=== PATIENT | female | born 1935 | race Caucasian/White ===

== ENCOUNTER 2018-03-20 09:18 | Inpatient (IN) | END 2018-03-22 17:09 | DRG 871 ==

== ENCOUNTER 2018-12-19 08:25 | Emergency (ER) | payer MEDICARE ==
[~2018-12-19] VITALS: Ht 160 cm; Wt 74.0 kg
[~2018-12-19 08:25] MED LIST: ALBU2.5V3 NEB; BUDE0.25 HHN; CLOP75TA27 PO; DOCU-216 PO; DOXY100T20 PO; FAMO40TA5 PO; FER325 PO; GUAI120S25 PO; HYDR25TA6 PO; PSYL3.4P11 PO; TORS5TAB10 PO
[2018-12-19 08:32] VITALS: Ht 160 cm; Wt 74.0 kg
[2018-12-19] MEDS ORDERED: NAPR-985 PO (10:27)
[2018-12-19 11:41] VITALS: BP 177/79; PULSE 67; RESP 18
--- NOTE | 2018-12-19 14:59 | ERD ---
ER Documentation Chief Complaint Chief Complaint rt ankle pain s/p slipped from bed HPI 83-year-old female presenting with pain to her right ankle and right foot. She has dementia however she believes she may have fallen out of bed and sustained injury. She is not certain of her injury as she lives in assisted living. It was an unwitnessed episode. She was brought here by the ambulance because she was unable to walk after the injury occurred. This happened this morning ultimately 3 hours prior to my evaluation. She has not taken medications for her symptoms. Denies other medical problems. NKDA. Surgical history denies. Social history denies ROS All systems reviewed and are negative except as per history of present illness. Medications Home Meds Active Scripts Naproxen* (Naprosyn*) 500 Mg Tablet, 500 MG PO BID PRN for PAIN AND/OR INFLAMMATION, #30 TAB Prov:THONG TOWNSEND PA-C 12/19/18 Ferrous Sulfate* (Ferrous Sulfate*) 325 Mg Tabec, 325 MG PO BID for 30 Days, TAB Prov:FORRESTKESHAA V. DIRECTOR OF SCOUT WORK 03/22/18 Doxycycline Hyclate* (Doxycycline Hyclate*) 100 Mg Tablet.dr, 100 MG PO BID for 10 Days, TAB Prov:FORREST,GRAHAM V. DIRECTOR OF SCOUT WORK 03/22/18 Budesonide* (Budesonide*) 0.25 Mg/2 Ml Ampul.neb, 0.25 MG HHN BID RESP THERAPY for 7 Days Prov:FORRESTGRAHAM V. DIRECTOR OF SCOUT WORK 03/22/18 Albuterol Sulfate* (Albuterol Sulfate* Neb) 0.083%-3 Ml Neb, 1.25 MG NEB Q4H for 7 Days, #30 VIAL Prov:FORRESTKESHAA V. DIRECTOR OF SCOUT WORK 03/22/18 Psyllium Husk (with Sugar) (Metamucil Packet) 3.4 Gm Powd.pack, 1 PKT PO DAILY for 30 Days Prov:FORREST,GRAHAM V. DIRECTOR OF SCOUT WORK 03/22/18 Docusate Sodium (Dok) 100 Mg Capsule, 100 MG PO BID, #60 CAP Prov:FORRESTGRAHAM V. DIRECTOR OF SCOUT WORK 03/22/18 Dvkwohrzmrg-R-Nxrxfmymux Hb* (Guaifenesin* DM Syrup) 120 Ml Syrup, 10 ML PO Q4H PRN for COUGH, #10 Prov:GRAHAM FORREST V. DIRECTOR OF SCOUT WORK 03/22/18 Reported Medications Clopidogrel Bisulfate (Clopidogrel) 75 Mg Tablet, 75 MG PO DAILY, #30 TAB 03/20/18 Famotidine* (Famotidine*) 40 Mg Tablet, 40 MG PO HS, #30 TAB 03/20/18 Torsemide (Torsemide) 5 Mg Tablet, 5 MG PO DAILY, TAB 03/20/18 Hydrochlorothiazide* (Hydrochlorothiazide*) 25 Mg Tab, 25 MG PO DAILY, #30 TAB 03/20/18 Allergies Allergies: Coded Allergies: Penicillins (Verified Allergy, Severe, 03/21/18) Sulfa (Sulfonamide Antibiotics) (Verified Allergy, Severe, 03/21/18) furosemide (Verified Allergy, Severe, 03/20/18) iodine (Verified Allergy, Severe, 03/20/18) PMhx/Soc History of Surgery: Yes (Right ankle ORIF, hysterectomy) Anesthesia Reaction: No Hx Neurological Disorder: Yes (CVA - no residual effects, chronic lower back pain) Hx Respiratory Disorders: Yes (Pneumonia, positive TB tests) Hx Cardiac Disorders: Yes (HTN) Hx Psychiatric Problems: No Hx Miscellaneous Medical Probl: Yes (ORIF R ankle fx 1 month ago,HTN,CAD) Hx Alcohol Use: No Hx Substance Use: No Hx Tobacco Use: No Smoking Status: Never smoker FmHx Family History: No diabetes, No coronary disease, No other Physical Exam Vitals Vital Signs Date Temp Pulse Resp B/P (MAP) Pulse Ox O2 O2 Flow FiO2 Time Delivery Rate 12/19/18 97.6 67 18 177/79 98 Room Air 11:41 (111) 12/19/18 98.2 67 18 176/81 99 08:32 (112) Physical Exam GENERAL: The patient is well-appearing, well-nourished, in no acute distress CHEST: Clear to auscultation bilaterally. There are no rales, wheezes or rhonchi. HEART: Regular rate and rhythm. No murmurs, clicks, rubs or gallops. EXTREMITIES: Tender to palpation over the dorsal foot with no obvious deformity. Questionable swelling. No erythema or fluctuance. No contusion NEUROLOGIC: Alert and oriented. Cranial nerves II through XII intact. Motor strength in all 4 extremities with 5 out of 5 strength. Sensation grossly intact. SKIN: There is no apparent rash or petechiae. The skin is warm and dry. Procedures/MDM DIAGNOSTIC IMAGING REPORT Patient: LLOYD STERN : 1935 Age: 83 Sex: F MR #: [id number] DOS: 12/19/18 0858 Ordering MD: ELIEZER TOWNSEND PA-C Location: [facility] Room/Bed: PROCEDURE: XR right ankle CLINICAL INDICATION: Ankle pain. TECHNIQUE: Three views of the ankle were obtained. COMPARISON: None. FINDINGS: There is a small nondisplaced intra-articular fracture of the dorsal base of the first metatarsal. Remaining osseous structures are intact. There postsurgical changes of open reduction and internal fixation of the distal fibula and medial malleolus with fibular side plate and multiple surgical screws. There is no evidence of hardware failure. There are mild osteoarthritic changes of the intertarsal joints. There is moderate soft tissue swelling of the ankle. IMPRESSION: 1. Small nondisplaced, intra-articular first metatarsal base fracture. 2. Postsurgical changes of distal fibular and medial malleolar ORIF without evidence of complication. 3. Mild intertarsal osteoarthritis. 4. Moderate ankle soft tissue swelling. DIAGNOSTIC IMAGING REPORT Patient: LLOYD STERN : 1935 Age: 83 Sex: F MR #: [id number] DOS: 12/19/18 0858 Ordering MD: ELIEZER TOWNSEND PA-C Location: [facility] Room/Bed: PROCEDURE: XR right foot. CLINICAL INDICATION: Right foot pain. TECHNIQUE: Three views of the right foot were obtained. COMPARISON: None. FINDINGS: There is a comminuted, nondisplaced, intra-articular first proximal phalangeal base fracture. There is a comminuted, nondisplaced and intra-articular first metatarsal base fracture. Nondisplaced fractures of the second and third metatarsal bases are suggested. There are nondisplaced fractures of the second, third and fourth metatarsal neck. No evidence of dislocation. There are moderate to severe osteoarthritic changes of the first metatarsophalangeal joint. There are mild osteoarthritic changes of the intertarsal joints. There postsurgical changes of distal tibial and fibular ORIF, partially imaged. IMPRESSION: 1. Multiple nondisplaced right foot fractures, as above. ER course: Ortho boot applied in ED. Neuro intact pre-and post boot appli cation. MDM: 83-year-old female presenting with pain to her right ankle and right foot. Patient has a nondisplaced fracture noted. I have low suspicion for neuro deficit. I have low suspicion for compartment disorder. Patient is discharged with supportive medications and recommended to ice and elevate the affected foot. Patient is recommended to follow-up with orthopedics. Patient should remain nonweightbearing however given her age I do not feel that is appropriate as she will likely be more susceptible to falls. Patient is discharged with supportive medications. All questions answered at discharge Departure Diagnosis: Primary Impression: Foot fracture Condition: Stable Patient Instructions: Fracture, Foot Referrals: KAMILA NUNES MD [facility] Hours: Tue-Tue 9:00 AM - 5:00 PM Additional Instructions: FOLLOW UP WITH YOUR PRIMARY CARE PHYSICIAN TOMORROW.Return to this facility if you are not improving as expected. THONG TOWNSEND PA-C Dec 19, 2018 14:59
== END 2018-12-19 12:33 | disposition home or self-care (01) ==
LOC: FTE 08:25
DX: S92.314A Nondisplaced fracture of first metatarsal bone, right foot, initial encounter for closed fracture (principal); I10 Essential (primary) hypertension; I25.10 Atherosclerotic heart disease of native coronary artery without angina pectoris; W18.49XA Other slipping, tripping and stumbling without falling, initial encounter; Y92.9 Unspecified place or not applicable; Z86.73 Personal history of transient ischemic attack (TIA), and cerebral infarction without residual deficits
CPT/HCPCS: 73610; 73630; 99283; L4386